=== PATIENT | male | born 1975 ===

== ENCOUNTER 2018-04-01 16:46 | Emergency (ER) | payer OTHER ==
[2018-04-01 17:05] VITALS: BP 144/85; PULSE 86; RESP 14; TEMP 98.3; O2SAT 95
--- NOTE | 2018-04-01 17:56 | C.PDOC ---
History Of Present Illness 42 y/o male presents to the ED complaining of low back pain s/p fall over 1 month ago. Patient states he fell off the back of a truck while at work, and did not seek medical attention at that time. There was no head trauma or LOC. Pain has not subsided, prompting him to come to the ED for evaluation. Patient also has developed pain and numbness radiating down the right leg. He otherwise denies any dysuria, frequency, incontinence, fever, chills, neck pain, or other injury. Pain described as sharp, intermittent, and worse with movement. Of note , patient admits he was drinking yesterday but denies alcohol use today. Time Seen by Provider: 04/01/18 17:08 Chief Complaint (Nursing): Back Pain History Per: Patient History/Exam Limitations: no limitations Onset/Duration Of Symptoms: Days Current Symptoms Are (Timing): Still Present Previous Symptoms: Prior Injury Associated Symptoms: None Exacerbating Factor(s): Movement Past Medical History Reviewed: Historical Data, Nursing Documentation, Vital Signs Vital Signs: Last Vital Signs Temp 98.3 F 04/01/18 17:01 Pulse 86 04/01/18 17:01 Resp 14 04/01/18 17:01 BP 144/85 04/01/18 17:01 Pulse Ox 95 04/01/18 18:03 - Medical History PMH: No Chronic Diseases Surgical History: No Surg Hx Family History: States: No Known Family Hx - Social History Hx Tobacco Use: Yes Hx Alcohol Use: Yes Hx Substance Use: No - Immunization History Hx Tetanus Toxoid Vaccination: No Hx Influenza Vaccination: No Hx Pneumococcal Vaccination: No Review Of Systems Except As Marked, All Systems Reviewed And Found Negative. Constitutional: Negative for: Fever, Chills Gastrointestinal: Negative for: Nausea, Vomiting Genitourinary: Negative for: Dysuria, Frequency, Incontinence Musculoskeletal: Positive for: Back Pain, Leg Pain. Negative for: Neck Pain Neurological: Negative for: Weakness, Numbness Physical Exam - Physical Exam Appears: Non-toxic, No Acute Distress, Other (Appears intoxicated) Skin: Normal Color, Warm, No Rash Head: Atraumatic, Normacephalic Eye(s): bilateral: PERRL, EOMI, Other (bilateral conjunctival injection) Neck: Normal ROM, No Midline Cervical Tenderness, No Paracervical Tenderness, Supple Chest: Symmetrical Cardiovascular: Rhythm Regular, No Murmur Respiratory: Normal Breath Sounds, No Accessory Muscle Use Back: No Vertebral Tenderness, Paraspinal Tenderness (along the lumbar area), Other (Small lipoma para-spinally on the left) Extremity: Bilateral: Atraumatic, Normal Color And Temperature, Normal ROM Neurological/Psych: Oriented x3, Normal Speech, Normal Motor, Normal Sensation Gait: Steady ED Course And Treatment O2 Sat by Pulse Oximetry: 95 (RA) Pulse Ox Interpretation: Normal - Other Rad x-ray sacrum/coccyx X-Ray: Read By Radiologist Interpretation: Accession No. : [id number]. Patient Name / ID : SERENA SOW / [id number]. Exam Date : 04/01/2018 17:29:56 ( Approved ). Study Comment : Sex / Age : M / 42Y. Creator : Valery Reynolds. Dictator : Edenilson Willis MD. Human Services Instructor : Automatic Spooler Operator : Edenilson Willis MD. Approver2 : Report Date : 04/01/2018 17:44:54. My Comment : . Date of service: 04/01/2018. PROCEDURE: Radiographs of the Sacrum and Coccyx. HISTORY: fall one month ago, pain. COMPARISON: None available. TECHNIQUE: Frontal and lateral views of the sacrum and coccyx. FINDINGS: BONES: Sacrum and coccyx unremarkable. No fracture or focal lesion. SACROILIAC JOINTS: Unremarkable. OTHER FINDINGS: None. IMPRESSION: Unremarkable radiographs of the sacrum and coccyx. Medical Decision Making Medical Decision Making: Impression: Low back pain Initial Plan: --Motrin 600mg PO --Tylenol 975 mg PO --X-ray sacrum/coccyx Patient will be discharged home with prescriptions for motrin. Counseled regarding diagnosis and follow up instructions. Disposition Counseled Patient/Family Regarding: Need For Followup, Rx Given - Disposition Referrals: [facility] [Outside] Disposition: HOME/ ROUTINE Disposition Time: 17:58 Condition: STABLE Additional Instructions: Siga en la clinica. Lamme anh santiago para los resultatdos. [phone] Prescriptions: Ibuprofen [Motrin] 600 mg PO TID #15 tab Forms: [facility] ([place]), General Discharge Instructions - POA Present On Arrival: None - Clinical Impression Clinical Impression: Low back pain - Scribe Statement The provider has reviewed the documentation as recorded by the Randi Bennett Provider Attestation: All medical record entries made by the Natividadibvanessa were at my direction and personally dictated by me. I have reviewed the chart and agree that the record accurately reflects my personal performance of the history, physical exam, medical decision making, and the department course for this patient. I have also personally directed, reviewed, and agree with the discharge instructions and disposition.
--- NOTE | 2018-04-01 18:12 | RAD ---
Date of service: 04/01/2018 PROCEDURE: Radiographs of the Sacrum and Coccyx HISTORY: fall one month ago, pain COMPARISON: None available. TECHNIQUE: Frontal and lateral views of the sacrum and coccyx FINDINGS: BONES: Sacrum and coccyx unremarkable. No fracture or focal lesion. SACROILIAC JOINTS: Unremarkable. OTHER FINDINGS: None. IMPRESSION: Unremarkable radiographs of the sacrum and coccyx.
== END 2018-04-01 18:07 | disposition home or self-care (01) ==
LOC: C.ER 16:46
DX: M54.5 Low back pain (principal); Z72.0 Tobacco use